=== PATIENT | female | born 1975 | race Two or more races ===

== ENCOUNTER 2016-07-18 07:06 | Inpatient (IN) | payer MEDICAID ==
[2016-07-18] MEDS ORDERED: LACTATED RINGERS 1,000 ML IV PRN (07:10)
[2016-07-18] MEDS ORDERED: PENICILLIN G POTASSIUM 5 MMU in NS 0.9% (MINI-BAG PLUS) 100 ML IV ONE ×2 (07:10→08:30)
[2016-07-18] MEDS ORDERED: OXYTOCIN IN LR 500 ML IV PRN (07:10)
[2016-07-18] MEDS ORDERED: OXYTOCIN IN LR 500 ML IV ONE (07:10)
[2016-07-18 08:08] VITALS: BMI 35.0
[2016-07-18] MEDS ORDERED: IV START KIT ONE (08:19)
[2016-07-18] MEDS: LACTATED RINGERS 1,000 ML IV SCH ×5 (08:20→22:57)
[2016-07-18] MEDS ORDERED: LIDOCAINE 1% (PRES FREE) 30 ML VIAL ONE (08:20)
[2016-07-18] MEDS ORDERED: MINERAL OIL 25 ML BOT ONE (08:20)
[2016-07-18] MEDS ORDERED: LIDOCAINE Viscous 2% 15 ML UDCUP ONE (08:20)
[2016-07-18] MEDS ORDERED: OXYTOCIN 10 UNITS/ML VIAL ONE (08:20)
[2016-07-18] MEDS ORDERED: PUMP TUBING ONE (08:20)
[2016-07-18] MEDS ORDERED: NS 0.9% (MINI-BAG PLUS) 100 ML IV ONE ×2 (08:28→08:36)
[2016-07-18] MEDS ORDERED: PENICILLIN G POTASSIUM 5 MMU VIAL ONE ×2 (08:28→08:35)
--- NOTE | 2016-07-18 08:30 | PCMAN ---
OB Admission Note - History : 7 Term: 5 : 0 Abortions (S&E): 1 Livin EDC:: 08/01/16 Gestational Age (weeks): 38 Days (#/7): 0 Admit Cervical Dilation:: 2cm Admit Cervical Effacement (%):: 50 Admit Station:: -3 Admit Presentaton:: Vertex Membrane Status: Intact Contractions: No Heart Rate:: 140 Status:: reassuring Summary of Course:: Presented late to care at 22 3/7 wks. Dating by 22 3/7 wk u/s. AMA too late for quad but with nl u/s and low risk cfDNA by MFM. GDM, diet-controlled. LGA - per MFM, concern for greater than normal AC and advised IOL early. Obesity, BMI 35.9 with great weight control. Cholelithiasis - on u/s, asymptomatic - Labs Blood Type: A (+) positive Rubella Status: Immune GBS Status: Positive Abnormal Labs: Other (1hr GCT 198, 2/4 abnl on 3hr GTT, A1C 5.3) - Review of Systems 12 point ROS was negative except for occasional contractions. - Physical Exam General: Afebrile Psych/Mental Status: Mood/Affect Appropriate Lungs: Clear to Auscultation Bilaterally Cardiovascular: Regular Rate and Rhythm Abdomen: Normal Bowel Sounds Extremities: Full ROM - Problems (1) Term Status: Acute Code: Z34.80Assessment/Plan: Presented late to care at 22 3/7wks. Dating by late u/s. Uneventful course, seen by M. Antepartum surveillance was wnl. Even though cervix not that favorable, I would like to start Pitocin along with GBS prophylaxis now in this G7 to help descend baby. -will reassess in 4hrs, if still high and unfavorable, might consider Cytotec at that time (2) Advanced maternal age (AMA), 40 years or greater Status: Acute Code: [id number]/Plan: Ref to MFM, too late for Quad but cfDNA was wnl as was level 2 u/s. Antepartum surveillance wnl in clinic. (3) GDM (gestational diabetes mellitus), class A1 Status: Acute Code: O24.410Assessment/Plan: Diet-controlled. Pt made lots of effort. (4) Obesity (BMI 30-39.9) Status: Acute Code: E66.9Assessment/Plan: Pt made lots of effort and did not gain any weight. (5) Macrosomia of fetus affecting management of mother Status: Acute Code: [id number]/Plan: Seen by MFM and concerned for macrosomia particularly with increased AC. Advised IOL early and <39 wks.
[2016-07-18 08:34] LABS: HEMATOCRIT 34.1 % (37.0-47.0); HEMOGLOBIN 11.7 gm/l (12.0-16.0); MEAN CORPUSCULAR HEMOGLOBIN 29.8 pg (27.0-31.0); MEAN CORPUSCULAR HGB CONC 34.3 g/dl (33.0-37.0); RED CELL DISTRIBUTION WIDTH 13.2 % (11.5-14.5)
[2016-07-18] MEDS ORDERED: PENICILLIN G 3 MIL UNIT PREMIX 50 ML IV ONE ×3 (12:28→21:35)
[2016-07-18] MEDS: PENICILLIN G 3 MIL UNIT PREMIX 3 MMU in Premix (D5W) 50 ml 1 EACH IV SCH ×3 (12:32→21:38)
--- NOTE | 2016-07-18 13:14 | PDOC36 ---
Provider Note Subject: Was called into room due to sudden drop in BPs 60s/30s, pt felt weak and dizzy. This happened right after administration of second dose of antibiotics. Pt did not eat any lunch and only sparsely early in the morning. Blood glucose checked was borderline low at 61. Pt on Pitocin for IOL, was on 5 units, was vonnie irregularly but felt those contractions. FHTs 140, moderate variability, +accels, no decels. SVE 2cm/ 50%/high, cervix a little softer. A/P: Suspect hypoglycemia contributing. -1 L LR given stat and pt repositioned in Trendelenburg, BP responded quickly and pt felt better -Pitocin stopped -advised to order lunch and eat -after lunch if BP remains stable and pt stable, will place Cervidil to continue IOL
[2016-07-18] MEDS ORDERED: DINOPROSTONE 10 MG SUP VG ONE ×2 (14:10→14:11)
[2016-07-19] MEDS ORDERED: PENICILLIN G 3 MIL UNIT PREMIX 50 ML IV ONE ×3 (01:18→09:17)
[2016-07-19] MEDS: PENICILLIN G 3 MIL UNIT PREMIX 3 MMU in Premix (D5W) 50 ml 1 EACH IV SCH ×3 (01:37→09:20)
--- NOTE | 2016-07-19 07:49 | PDOC36 ---
Provider Note Subject: Care assumed and written and verbal sign out received from Dr. Sneed. Reviewed H&P. Cervidil pulled at 12 hours, rested after 2 am and now eating breakfast. Will reassess cervix and determine next step after exam. Cat 1 strip and vssaf at last check.
[2016-07-19] MEDS ORDERED: PUMP TUBING ONE (08:04)
[2016-07-19] MEDS: LACTATED RINGERS 1,000 ML IV SCH (09:21)
--- NOTE | 2016-07-19 10:40 | PDOC36 ---
Provider Note Subject: pt. with large cystocele, will place torres to decompress and re evaluate cervix.
--- NOTE | 2016-07-19 13:04 | US ---
Exam: Limited obstetric ultrasound follow-up, biophysical profile Comparison: 04/21/2016 Indication: Scheduled induction. Findings: Limited obstetric ultrasound followup and biophysical profile were obtained. Real-time sonographic imaging demonstrated a single live intrauterine in cephalic presentation with a heart rate of 141 bpm. JOSE measures 12.3 cm. Measurements of the fetus are as follows: BPD: 8.6 cm, 34 weeks 4 days HC: 33.2 cm, 37 weeks 6 days AC: 34.7 cm, 38 weeks 5 days FL: 7.5 cm, 38 weeks 3 days This combines for a mean gestational age by ultrasound for 37 weeks 3 days with a sonographic MOSES of 08/06/2016. This is within 5 days of clinical dating. Estimated weight is at the 3367 g +/- 505 g which is at the 77th percentile based on clinical data. Biophysical profile is as follows: breathing movements: 2 motion: 2 tone: 2 Amniotic fluid volume: 2 Total score 8 out of 8. Impression: 1. Biophysical profile is normal, with a score of 8 out of 8. 2. Single live intrauterine in cephalic presentation with a heart rate of 141 beats per minute. 3. Estimated weight is 3367 g +/- 505 g which is at the 77th percentile based on clinical dating. 4. JOSE 12.3 cm. 5. Gestational age of 37 weeks 3 days and a sonographic MOSES of 08/06/2016 is within 5 days of clinical dating.
--- NOTE | 2016-07-19 14:19 | PDOC39B ---
Hospital Course: ADMIT DATE: 07/18/16 DISCHARGE DATE: 07/19/16 ADMISSION DIAGNOSES: 38week IUP, AMA, GDM, LGA DISCHARGE DIAGNOSES: 38week IUP undelivered, AMA, well controlled GDM, (not LGA ), large urethral diverticulum. PROCEDURES: US for growth, BPP 12/07, consults with INTERNAL CARVER Dr. Acosta and Urology Dr. Barrios. HISTORY OF PRESENT ILLNESS: 40 year old G7 T5 L5 at 38 weeks 0 days presenting for IOL secondary to LGA, AMA and GDM. HOSPITAL COURSE: The patient was admitted for IOL given AMA, well controlled GDM (no meds) and LGA. She was given low dose PIT and cervidil with failure to dilate of her cervix which stayed 1cm or finger tip. I assumed care and noted a very large midline mass in her vagina c/w possible urethral diverticulum. Brock catheter was placed and the bladder drained of clear urine. I then re examined the patient and mass was still present. I consulted Dr. Acosta who recc : consult with Dr. Barrios who confirmed the diagnosis of large urethral diverticulum and recc: c section for mode of delivery to avoid damage to urethra given the size of the diverticulum. He also recc: surgical treatment of diverticulum. I reviewed the indications for IOL: AMA-Delivery at 39 weeks. GDM-well controlled. All fasting and pp last week were normal, normal hgA1c. Delivery at term. LGA-US today showed fetus with EFW of about 3600gm, near 77%tile and patient will be having c section. No indication for delivery before 39 weeks. BPP was 12/07, JOSE 12. I reviewed these indications for delivery with Dr. Acosta and with Dr. Sneed the pt's PCP. I also then discussed the case with the patient and recc: she return to clinic in 3 days for NST/JOSE and then on for primary c section at 39 weeks. Pt. understands and all of her questions were answered. She agrees with the plan and will f/u in clinic and then again here in 1 week. I did let her know that we cannot predict all bad outcomes but that the information we have gathered and the recc to deliver at 39 weeks via c section for large urethral diverticulum is appropriate.
--- NOTE | 2016-07-20 13:38 | PDOC36 ---
Provider Note Subject: Consultation (done 07/19/16) Note: Dr. Puente requested me to see patient re: induction of labor and also vaginal mass. Pt is 41yo at 38weeks gestation, with GDMA1. Pt's glucose have been well controlled with diet and recent oldk1c=6.3. Pt was admitted for induction of labor due to concerns for possible macrosomia, however despite pitocin patient had not progressed and also was noted to have a vaginal/urethral cyst. This did not resolve with a torres catheter. Upon my evaluation, pt was noted to have a large 6cm suburethral cyst which was firm. This appeared to be a urethral diverticulum. The torres bulb was palpable superior to this. Cervix was closed. Clinical EFW was 3200g by my palpation / estimation. I have d/w Dr. Puente and recommended to check u/s for an sonographic estimation (as apparently last u/s growth was in June). I feel in light of well controlled GDMa1 as well that no induction required at this time. I have recommended also u/s to evaluate this diverticulum as well as to consult urology as to opinion whether this diverticulum could be drained prior to vaginal delivery.
== END 2016-07-19 18:05 | disposition home or self-care (01) | DRG 781 ==
LOC: FBC 07:06 → EDSTATUS 08-01 08:40
PROVIDERS: ADMIT Family Medicine; ATTEND Family Medicine
PROC: 3E033VJ Introduction of Other Hormone into Peripheral Vein, Percutaneous Approach (ICD-10-PCS; principal; 2016-07-18)
PROC: 3E0P7GC Introduction of Other Therapeutic Substance into Female Reproductive, Via Natural or Artificial Opening (ICD-10-PCS; 2016-07-18)
DX: O61.0 Failed medical induction of labor (principal); O26.893 Other specified pregnancy related conditions, third trimester; O34.83 Maternal care for other abnormalities of pelvic organs, third trimester; N36.1 Urethral diverticulum; E16.1 Other hypoglycemia; Z3A.38 38 weeks gestation of pregnancy; O24.410 Gestational diabetes mellitus in pregnancy, diet controlled; O99.213 Obesity complicating pregnancy, third trimester; Z68.35 Body mass index [BMI] 35.0-35.9, adult; O99.820 Streptococcus B carrier state complicating pregnancy; O99.613 Diseases of the digestive system complicating pregnancy, third trimester; K80.20 Calculus of gallbladder without cholecystitis without obstruction

== ENCOUNTER 2016-07-26 05:23 | Inpatient (IN) | payer MEDICAID ==
[2016-07-26] MEDS ORDERED: IV START KIT ONE (05:32)
[2016-07-26] MEDS ORDERED: LACTATED RINGERS 1,000 ML ONE (05:32)
[2016-07-26 06:18] VITALS: BMI 35.0
[2016-07-26] MEDS ORDERED: CEFAZOLIN SODIUM 2 GRAM DUPLEX 2 G in Premix (D5W) 50 ml 1 EACH IV PRN (06:27)
[2016-07-26] MEDS ORDERED: LACTATED RINGERS 1,000 ML IV SCH (06:30)
[2016-07-26] MEDS ORDERED: MORPHINE SULFATE (DURAMORPH) 1 MG/ML 10ML AMP ONE (06:30)
[2016-07-26] MEDS ORDERED: SPINAL PROCEDURAL TRAY 1 EACH ONE (06:31)
[2016-07-26] MEDS ORDERED: FENTANYL 100 MCG/2 ML VIAL ONE (06:31)
[2016-07-26 06:40] LABS: HEMOGLOBIN 11.8 gm/l (12.0-16.0); MEAN CELL VOLUME 86.5 fl (81.0-99.0); MEAN CORPUSCULAR HGB CONC 34.7 g/dl (33.0-37.0); RED CELL DISTRIBUTION WIDTH 13.1 % (11.5-14.5)
[2016-07-26] MEDS ORDERED: CEFAZOLIN SODIUM 2 GRAM DUPLEX 50 ML IV ONE (06:55)
--- NOTE | 2016-07-26 07:31 | PDOC36 ---
Provider Note Note: cc: Admission H&P HPI: 41 y.o. year old MOSES 08/01/2016, by Ultrasound at 39w1d here for a primary CS REVIEW OF SYSTEMS GENERAL:~ No fever or headache EYES:~ No double or blurry vision. CARDIOVASCULAR:~ No chest pain. RESPIRATORY:~ No severe shortness of breath or cough. GASTROINTESTINAL:~ No nausea or vomiting or right upper quadrant pain.~ PSYCHIATRIC:~ No anxiety or depression. PROBLEMS Patient Active Problem List Diagnosis Date Noted Urethral diverticulum 07/19/2016 Large for gestational age (LGA) 07/05/2016 Placenta previa in second trimester 05/14/2016 Calculus of gallbladder 05/11/2016 Obesity with body mass index 30 or greater 05/11/2016 Diet controlled gestational diabetes mellitus (GDM) in third trimester 2015 GBS bacteriuria 04/05/2016 Supervision of high risk elderly multigravida in third trimester 04/02/2016 Skin tag, acquired 02/02/2016 Lump or mass in breast 07/24/2004 OB HISTORY #: 1, Date: 01/22/97, Sex: Male, Weight: 2.211 kg (4 lb 14 oz), GA: 40w0d, Delivery: Vaginal, Spontaneous Delivery, Apgar1: None, Apgar5: None, Living: Yes , Comments: None #: 2, Date: 05/09/98, Sex: Male, Weight: 3.629 kg (8 lb), GA: 40w0d, Delivery: Vaginal, Spontaneous Delivery, Apgar1: None, Apgar5: None, Living: Yes, Comments : None #: 3, Date: 01/1999, Sex: None, Weight: None, GA: 10w0d, Delivery: None, Apgar1 : None, Apgar5: None, Living: None, Comments: Pt. stated had cramping & vaginal bleeding was seen @ [facility] in [place] in ER was told had SAB #: 4, Date: 01/14/00, Sex: Female, Weight: 3.402 kg (7 lb 8 oz), GA: 40w0d, Delivery: Vaginal, Spontaneous Delivery, Apgar1: None, Apgar5: None, Living: Yes , Comments: None #: 5, Date: 07/27/01, Sex: Female, Weight: 3.402 kg (7 lb 8 oz), GA: 40w0d, Delivery: Vaginal, Spontaneous Delivery, Apgar1: None, Apgar5: None, Living: Yes , Comments: None #: 6, Date: 10/13/05, Sex: Male, Weight: 3.856 kg (8 lb 8 oz), GA: 40w0d, Delivery: Vaginal, Spontaneous Delivery, Apgar1: None, Apgar5: None, Living: Yes , Comments: None #: 7, Date: None, Sex: None, Weight: None, GA: None, Delivery: None, Apgar1: None, Apgar5: None, Living: None, Comments: None PSH No past surgical history on file. SOC HX Reorts that she has never smoked. She has never used smokeless tobacco. She reports that she drinks alcohol. She reports that she does not use illicit drugs. ALL No Known Allergies MEDICATIONS ~ Blood Glucose Monitoring Suppl (FREESTYLE INSULINX SYSTEM) W/DEVICE kit, Before breakfast and 1 hour after meals, Disp: 1 kit, Rfl: 0 ~ clotrimazole (LOTRIMIN) 1 % cream, Apply topically 2 (two) times a day., Disp : 30 g, Rfl: 2 ~ diphenhydrAMINE (BENADRYL) 25 mg capsule, Take 1 capsule (25 mg total) by mouth every 6 (six) hours as needed for allergies., Disp: 30 capsule, Rfl: 0 ~ FREESTYLE INSULINX TEST test strip, Before breakfast and 1 hour after meals, Disp: 3 each, Rfl: 11 ~ Lancets (FREESTYLE) lancets, Before breakfast and 1 hour after meals, Disp: 3 each, Rfl: 11 ~ Vmihcifd-Mmu-Vn-FA ( VITAMINS) 0.8 MG tablet, Take 1 tablet by mouth daily., Disp: 30 tablet, Rfl: 11 PHYSICAL EXAMINATION VITAL SIGNS:~ AFVSS Estimated body mass index is 35.35 Total weight gain is -0.3 kg (-10.6 oz) FHT:~ Category I [place]:~ None SVE:~ DNE GENERAL:~ No distress CARDIOVASCULAR:~ Regular rate and rhythm, no murmur, JVD or pedal edema. RESPIRATORY:~ Clear to auscultation bilaterally, respiratory effort is nonlabored at rest. GASTROINTESTINAL:~ Gravid no fundal tenderness NEUROLOGIC:~ Deep tendon reflexes are 2+ in the knees.~ Cranial nerves II-XII are grossly intact. PSYCHIATRIC:~ Alert and oriented x3, judgement and memory is intact, mood is pleasant. LABS & STUDIES A+ Antibody- Rubella Immune Hep B- HIV- GC/Chlamydia- Trep- Hgb 11.8 GBS + ULTRASOUNDS 34 wk 84% ASSESSMENT 41 y.o. year old MOSES 08/01/2016, by Ultrasound at 39w1d PLAN 41 yo @ 39 1/7 wks gestation here for a primary CS for large urethral diverticulum. Dr. Arceo reviewed the risks, benefits and alternatives of a section with the patient. She understands the risk of bleeding (she states that she would accept blood products if medically necessary and consent was obtained after counseling), infection (wound infection - possibly leading to wound dehiscence, or pelvic infection) and damage to surrounding organs/tissues ( including, but not limited to, bladder, bowel, ureters, uterus, ovaries/tubes, blood vessels and nerves - as well as possible fistula formation). She understands that any of the above could necessitate further treatment or surgeries. We also reviewed the alternative to section (vaginal delivery), but she would like to proceed with section. Patient understands and agrees. All questions were answered. Gilberto Lambert MD MPH
[2016-07-26] MEDS ORDERED: EPHEDRINE SULFATE UD SYR 25 MG 25 MG/5 ML SYRINGE IV ONE (07:32)
[2016-07-26] MEDS ORDERED: HYDROMORPHONE HCL 2 MG/ML SYRINGE IV PRN (07:47)
[2016-07-26] MEDS ORDERED: HYDROMORPHONE HCL 1 MG/ML SYRINGE IV PRN (07:47)
[2016-07-26] MEDS ORDERED: EPHEDRINE SULFATE 50 MG/ML 1ML VIAL IV PRN (07:47)
[2016-07-26] MEDS ORDERED: PROMETHAZINE HCL 25 MG/ML VIAL IM PRN (07:47)
[2016-07-26] MEDS ORDERED: NALBUPHINE HCL 20 MG/ML AMP IV PRN (07:47)
[2016-07-26] MEDS ORDERED: NALOXONE HCL 0.4 MG/ML VIAL IV PRN (07:47)
[2016-07-26] MEDS ORDERED: DIPHENHYDRAMINE HCL 50 MG/1 ML VIAL IV PRN ×2 (07:47→09:07)
[2016-07-26] MEDS ORDERED: ONDANSETRON 4 MG/2ML 2 ML VIAL IV PRN (07:47)
[2016-07-26] MEDS ORDERED: PROMETHAZINE HCL 12.5 MG in SODIUM CHLORIDE 0.9% 50 ML IV PRN (07:47)
[2016-07-26] MEDS ORDERED: OXYTOCIN 10 UNITS/ML VIAL ONE (08:02)
[2016-07-26] MEDS ORDERED: ONDANSETRON 4 MG/2ML 2 ML VIAL ONE (08:04)
[2016-07-26] MEDS ORDERED: OXYCODONE HCL 5 MG TABLET PO PRN (09:07)
[2016-07-26] MEDS ORDERED: DIPHENHYDRAMINE HCL 25 MG CAPSULE PO PRN (09:07)
[2016-07-26] MEDS ORDERED: LANOLIN 50 APPLIC/7G TUBE TP PRN (09:07)
--- NOTE | 2016-07-26 09:22 | PDOC37 ---
Note:: DATE OF PROCEDURE 07/26/16 PREOPERATIVE DIAGNOSES Term Large Urethral Diverticulum Preventing Vaginal Delivery POSTOPERATIVE DIAGNOSES Same PROCEDURE Primary LTCS SURGEON Gilberto Lambert MD MPH YARD CALLER Radha Arceo MD ANESTHESIA Spinal COMPLICATIONS Needle tip broken off, recovered in needle limousine driver jaws by surgical scrub tech ESTIMATED BLOOD LOSS 750 mL URINE OUTPUT 100 mL IV FLUIDS 2400 mL START TIME 8:06 AM IMPLANTS None SPECIMENS None BRIEF HISTORY 41 y.o. year old MOSES 08/01/2016 at 39w1d here for a primary section. The patient has a large urethral diverticulum which prevents her from delivering vaginally. FINDINGS Large 6 cm ventral urethral diverticulum OPERATIVE NOTE Verbal and written informed consent was obtained. The patient was taken to the operating room where spinal anesthesia was found to be adequate.~ She was then placed in the dorsal supine position with a leftward tilt and prepped and draped in a sterile fashion.~ Surgical timeout was performed confirming the patient's name, date of , surgical procedure to be performed and any concerns from team members.~ A Pfannenstiel skin incision was then made with the scalpel and carried through to the underlying layer of fascia.~ The fascia was incised in the midline and the incision extended laterally with the Guevara scissors.~ The superior aspect of the fascial incision was then grasped with Avi clamps, elevated and the underlying rectus muscles dissected off bluntly and with Guevara scissors.~ Attention was then turned to the inferior aspect of this incision, which in similar fashion was grasped, tented up with Avi clamps, and the rectus muscle dissected of bluntly with Guevara scissors.~ The rectus muscles were then bluntly in the midline, and the peritoneum identified, tented up, and entered sharply with Metzenbaum scissors. ~ The peritoneal incision was then extended superiorly and inferiorly with good visualization of the bladder.~ An Alexander retractor was inserted.~ The visceroperitoneum was grasped with smooth pickups, entered with Metzenbaum scissors, and extended laterally. A bladder flap was created by gentle blunt dissection and placed behind the bladder blade. The lower uterine segment was then incised in a transverse fashion with the scalpel.~ The uterine incision was then bluntly extended revealing the amniotic sac which was ruptured with clear fluid.~ The 's head was grasped, flexed and elevated to level of the hysterotomy and the head was then delivered atraumatically.~ The mouth and nose were bulb suctioned and the cord clamped and cut after waiting 1 minute.~ The was handed off to the waiting resuscitation team.~ Cord gases were not required. The placenta was then removed via cord traction and fundal massage. The uterine incision was repaired with 0 Vicryl in a running, locked fashion.~ The second layer was imbricated with 0 Vicryl in a running fashion.~ Hemostasis was checked and areas of bleeding were repaired with figure of eight stitches using 0 Vicryl and the Bovie. The gutters were cleared of all clots.~ The peritoneum was closed with 2-0 Vicryl. Hemostasis was carefully checked and found to be satisfactory.~ The fascia was reapproximated with 0 Vicryl in a running fashion.~ Bleeding points were Bovie coagulated. The subcutaneous tissue was reapproximated with 0 plain and the skin was closed subcutaneously using 4-0 vicryl with a subcuticular stitch.~ A sterile dressing was placed. The patient tolerated the procedure well.~ Sponge, lap and needle counts were correct times two. The patient was taken to the recovery room in stable condition.
[2016-07-26] MEDS: ONDANSETRON 4 MG/2ML 2 ML VIAL IV PRN ×2 (11:30→17:26)
[2016-07-26] MEDS: LACTATED RINGERS 1,000 ML IV SCH ×2 (11:30→18:35)
[2016-07-26] MEDS: KETOROLAC TROMETHAMINE 30 MG/ML 1 ML VIAL IV PRN (20:11)
[2016-07-27] MEDS: KETOROLAC TROMETHAMINE 30 MG/ML 1 ML VIAL IV PRN (05:18)
[2016-07-27] MEDS: DOCUSATE SODIUM 100 MG CAPSULE PO SCH ×2 (06:29→10:17)
[2016-07-27 06:41] LABS: HEMATOCRIT 31.9 % (37.0-47.0); HEMOGLOBIN 10.7 gm/l (12.0-16.0)
[2016-07-27] MEDS: PRENATAL VIT/FE FUMARATE/FA 1 TABLET PO SCH (10:17)
[2016-07-27] MEDS: IBUPROFEN 800 MG TABLET PO PRN (14:31)
--- NOTE | 2016-07-27 15:09 | PDOC44 ---
- Subjective Day: 1 - Objective Temp Pulse Resp BP Pulse Ox 98.4 F 66 14 108/62 07/27/16 10:20 07/27/16 10:20 07/27/16 10:20 07/27/16 10:20 Lab Results 07/27/16 06:10 Hgb 10.7 L Hct 31.9 L Current Medications Generic Name Dose Route Start Last Admin Trade Name Freq PRN Reason Stop Dose Admin Diphenhydramine HCl 25 - 50 mg 07/26/16 09:07 Benadryl PO Q6H PRN Itching (Mild/Moderate) Diphenhydramine HCl 25 - 50 mg 07/26/16 09:07 Benadryl IV Q6H PRN Itching (Severe) Docusate Sodium 100 mg 07/26/16 21:00 07/27/16 10:17 Colace PO 100 mg BID PILAR Administration Emollient Ointment 1 applic 07/26/16 09:07 Lhn-B-Sjudbl TP PRN PRN sore nipples Lactated Ringer's 1,000 mls @ 125 mls/hr 07/26/16 09:15 07/26/16 18:35 Lactated Ringers IV Not Given .Q8H PILAR Promethazine HCl 12.5 mg/ 50.5 mls @ 202 mls/hr 07/26/16 07:47 Sodium Chloride IV Q4H PRN Nausea/Vomiting Ibuprofen 800 mg 07/26/16 09:07 Motrin PO Q6H PRN Pain Ketorolac Tromethamine 30 mg 07/26/16 09:07 07/27/16 05:18 Toradol IV 30 mg Q6H PRN Administration Pain (Mild/Moderate) Multivi/Iron Carb/Fe Sulf/FA/Prenat 1 tab 07/27/16 09:00 07/27/16 10:17 Plus PO 1 tab DAILY PILAR Administration Ondansetron HCl 4 mg 07/26/16 09:07 07/26/16 17:26 Zofran IV 4 mg Q6H PRN Administration Nausea/Vomiting Oxycodone HCl 5 - 10 mg 07/26/16 09:07 Roxicodone PO Q3H PRN Pain (Severe) Sodium Chloride 10 ml 07/26/16 09:07 07/26/16 20:12 Normal Saline 10ml Flush IV 10 ml PRN PRN Administration IV Flush Sodium Chloride 10 ml 07/26/16 17:00 07/27/16 10:17 Normal Saline 10ml Flush IV 10 ml Q8HR PILAR Administration - Physical Exam General: Afebrile Psych/Mental Status: Mood/Affect Appropriate Neurological: Oriented x 4 Lungs: Clear to Auscultation Bilaterally Cardiovascular: Regular Rate and Rhythm Fundus: Firm, Below Umbilicus Wound AIR FILLER: Well Approximated - Problems:Assessment/Plan (1) Delivery by section of full-term Status: AcuteAssessment/Plan: Doing well Normal Exam Continue routine care (2) GDM (gestational diabetes mellitus), class A1 Status: AcuteAssessment/Plan: Needs 2 hr GTT 6 weeks (3) Urethral diverticulum Status: AcuteAssessment/Plan: Needs followup with Urogyn as an outpatient
[2016-07-27] MEDS: LACTATED RINGERS 1,000 ML IV SCH ×2 (16:26→16:27)
[2016-07-28] MEDS: IBUPROFEN 800 MG TABLET PO PRN ×3 (02:45→16:59)
[2016-07-28] MEDS: PRENATAL VIT/FE FUMARATE/FA 1 TABLET PO SCH (08:03)
[2016-07-28] MEDS: DOCUSATE SODIUM 100 MG CAPSULE PO SCH ×2 (08:03→17:32)
[2016-07-28] MEDS: LACTATED RINGERS 1,000 ML IV SCH ×3 (08:11→17:33)
[2016-07-28] MEDS ORDERED: DIPHTH,PERTUSS(ACELL),TET VAC 0.5 ML VIAL IM V ONE (08:31)
--- NOTE | 2016-07-28 15:22 | PDOC44 ---
- Subjective Day: 2 (POD#2 s/p p LTCS) Doing well. Able to ambulate, void and eat. Pain controlled on oral meds. Reports Flatus, Reports Pain Tolerable, Reports , Reports Tolerating Regular Diet, Denies Nausea, Denies Vomiting, Denies Fever - Objective Temp Pulse Resp BP Pulse Ox 97.9 F 70 16 99/68 07/28/16 08:00 07/28/16 08:00 07/28/16 08:00 07/28/16 08:00 Current Medications Generic Name Dose Route Start Last Admin Trade Name Freq PRN Reason Stop Dose Admin Diphenhydramine HCl 25 - 50 mg 07/26/16 09:07 Benadryl PO Q6H PRN Itching (Mild/Moderate) Diphenhydramine HCl 25 - 50 mg 07/26/16 09:07 Benadryl IV Q6H PRN Itching (Severe) Docusate Sodium 100 mg 07/26/16 21:00 07/28/16 08:03 Colace PO 100 mg BID PILAR Administration Emollient Ointment 1 applic 07/26/16 09:07 07/28/16 08:27 Var-L-Qpwcps TP 1 applic PRN PRN Administration sore nipples Lactated Ringer's 1,000 mls @ 125 mls/hr 07/26/16 09:15 07/28/16 08:11 Lactated Ringers IV Not Given .Q8H PILAR Promethazine HCl 12.5 mg/ 50.5 mls @ 202 mls/hr 07/26/16 07:47 Sodium Chloride IV Q4H PRN Nausea/Vomiting Ibuprofen 800 mg 07/26/16 09:07 07/28/16 08:03 Motrin PO 800 mg Q6H PRN Administration Pain Ketorolac Tromethamine 30 mg 07/26/16 09:07 07/27/16 05:18 Toradol IV 30 mg Q6H PRN Administration Pain (Mild/Moderate) Multivi/Iron Carb/Fe Sulf/FA/Prenat 1 tab 07/27/16 09:00 07/28/16 08:03 Plus PO 1 tab DAILY PILAR Administration Ondansetron HCl 4 mg 07/26/16 09:07 07/26/16 17:26 Zofran IV 4 mg Q6H PRN Administration Nausea/Vomiting Oxycodone HCl 5 - 10 mg 07/26/16 09:07 Roxicodone PO Q3H PRN Pain (Severe) Sodium Chloride 10 ml 07/26/16 09:07 07/26/16 20:12 Normal Saline 10ml Flush IV 10 ml PRN PRN Administration IV Flush Sodium Chloride 10 ml 07/26/16 17:00 07/28/16 08:03 Normal Saline 10ml Flush IV 10 ml Q8HR PILAR Administration - Physical Exam General: Afebrile, No Acute Distress Psych/Mental Status: Mood/Affect Appropriate, Bonding Well Neurological: Grossly Intact, Alert, Normal Speech HEENT: Atraumatic, Mucous membr. moist/pink Lungs: Clear to Auscultation Bilaterally Cardiovascular: Regular Rate and Rhythm Breast: Soft Fundus: Firm, Midline, Below Umbilicus Extremities: Full ROM Skin: Normal Color, Warm, Dry, Intact, No Rash Wound TECHNICIAN [employer]: Well Approximated (incision w steri strips c/d/i) - Problems:Assessment/Plan (1) Delivery by section of full-term Status: AcuteAssessment/Plan: Doing well POD#2 s/p p LTCS routine post csxn care support BF (2) Urethral diverticulum Status: AcuteAssessment/Plan: Needs followup with Urogyn as an outpatient (3) Advanced maternal age (AMA), 40 years or greater Status: Acute (4) GDM (gestational diabetes mellitus), class A1 Status: AcuteAssessment/Plan: Needs 2 hr GTT 6 weeks (5) Obesity (BMI 30-39.9) Status: Acute Disposition: Stable, Anticipate DC Home Tomorrow
[2016-07-29] MEDS: DOCUSATE SODIUM 100 MG CAPSULE PO SCH ×2 (01:33→08:26)
[2016-07-29] MEDS: IBUPROFEN 800 MG TABLET PO PRN ×2 (01:42→08:25)
[2016-07-29 07:37] VITALS: BP 111/65
[2016-07-29] MEDS: PRENATAL VIT/FE FUMARATE/FA 1 TABLET PO SCH (08:26)
--- NOTE | 2016-07-29 08:26 | PDOC39B ---
Hospital Course: ADMIT DATE: 07/26/16 DISCHARGE DATE: 07/29/16 ADMISSION DIAGNOSES: AMA A1GDM Urethral Diverticulum PROCEDURES: Primary LTCS HISTORY OF PRESENT ILLNESS: 41 year old G7 T5 L5 at 39 weeks 1 days presenting for primary LTCS for history of urethral diverticulum. HOSPITAL COURSE: The patient presented for schedule primary LTCS. She underwent her procedure without any complications. By day of discharge the patient is ambulating, eating, voiding, and passing flatus without difficulty. Pain is controlled and lochia is appropriate. She is breast feeding with some mild poor milk production. She met with and she will supplement due to weight loss. SHort f/u tomorrow in clinic. - Physical Exam Vital Signs: Temp Pulse Resp BP Pulse Ox 97.8 F 74 16 111/65 07/29/16 07:27 07/29/16 07:27 07/29/16 07:27 07/29/16 07:27 General: Afebrile, No Acute Distress Neurological: Alert, Oriented x 4 Lungs: Clear to Auscultation Bilaterally Cardiovascular: Regular Rate and Rhythm Fundus: Firm, Midline Extremities: Full ROM, No Edema Skin: Normal Color, Warm, Dry, Intact, No Rash Wound: Dressing Clean/Dry/Intact, Well Approximated - Discharge Diagnosis (1) Delivery by section of full-term infant Status: AcuteAssessment/Plan: Doing well POD#3 s/p p LTCS routine post csxn care support BF (2) Urethral diverticulum Status: AcuteAssessment/Plan: Needs followup with Urogyn as an outpatient (3) Advanced maternal age (AMA), 40 years or greater Status: Acute (4) GDM (gestational diabetes mellitus), class A1 Status: AcuteAssessment/Plan: Needs 2 hr GTT 6 weeks - Discharge Plan Condition: Good Disposition: Home Prescriptions: Docusate Sodium [COLACE 100 MG CAPSULE ([facility])] 100 mg PO BID #60 Ibuprofen [IBUPROFEN 800 MG TABLET ([facility])] 800 mg PO Q6H PRN #60 PRN Reason: Pain Lanolin [LANOLIN 7 G TUBE ([facility])] 1 applic TP PRN PRN #10 PRN Reason: Sore Nipples Oxycodone HCl [ROXICODONE 5 MG IR TABLET ([facility])] 5 - 10 mg PO Q3H PRN #20 PRN Reason: Pain (Severe) Follow-Up: Bita Sneed MD [Primary Care Provider] - In 2 weeks
[2016-07-29] MEDS: LACTATED RINGERS 1,000 ML IV SCH (09:35)
== END 2016-07-29 12:30 | disposition home or self-care (01) | DRG 766 ==
LOC: FBC 05:23 → EDSTATUS 08-01 05:14
PROVIDERS: ADMIT Family Medicine; ATTEND Family Medicine
PROC: 10D00Z1 Extraction of Products of Conception, Low, Open Approach (ICD-10-PCS; principal; 2016-07-26)
DX: O75.89 Other specified complications of labor and delivery (principal); N36.1 Urethral diverticulum; O09.523 Supervision of elderly multigravida, third trimester; O09.43 Supervision of pregnancy with grand multiparity, third trimester; O24.424 Gestational diabetes mellitus in childbirth, insulin controlled; Z37.0 Single live birth; Z3A.39 39 weeks gestation of pregnancy